=== PATIENT | female | born 1995 | race Caucasian/White ===

== ENCOUNTER 2019-10-06 13:54 | Emergency (ER) | payer OTHER, SELFPAY ==
[2019-10-06 14:26] VITALS: BP 136/76; PULSE 87; RESP 19; TEMP 37.3; O2SAT 100
--- NOTE | 2019-10-06 16:03 | ED.GENADULT ---
HPI - General Adult General Chief complaint: Upper Respiratory Infection Stated complaint: Knot on side neck Time Seen by Provider: 10/06/19 14:50 Source: patient Mode of arrival: ambulatory Limitations: no limitations History of Present Illness HPI narrative: Patient is a 24-year-old female who presents with a few days duration of sore throat with chills sweats with history of prior strep pharyngitis patient notes moderate aching pain to the throat made worse with swallowing has not taken anything for her symptoms presents per private vehicle. . Related Data Allergies Allergy/AdvReac Type Severity Reaction Status Date / Time No Known Allergies Allergy Unknown Verified 10/06/19 14:40 Review of Systems Review of Systems: All systems reviewed & are unremarkable except as noted in HPI and below PMFSH Social History Social History (Updated 10/06/19 @ 16:04 by Irvin Rg PA-C) Smoking status: Current every day smoker Gender identity (if verbalized by the patient): Female Exam Narrative: Exam Narrative: GENERAL: Well-appearing, well-nourished, and in no acute distress. HEAD: Normocephalic, atraumatic. EYES: PERRLA and EOMI. ENT: Nares clear, no rhinorrhea or epistaxis. Mucous membranes moist. Oropharynx with tonsillar hypertrophy exudate and without other lesions. Bilateral TMs pearly andrade nonbulging. Uvula midline no trismus or drooling NECK: Supple. Anterior adenopathy noted CHEST: Clear to auscultation. No respiratory distress. No wheezes rales or rhonchi HEART: Regular rate and rhythm. No murmur heard. EXTREMITIES: Normal range of motion. No edema. SKIN: Warm, dry, no rash. NEURO: No focal deficits. Alert and oriented x3. Cranial nerves II through XII grossly intact PSYCH: Normal mood and affect. Course Course Emergency Course: Patient in the room in no distress was offered fluids steroids IV but has refused and prefers to take oral medications notes that she needs to leave at this time Vital Signs Vital signs: Vital Signs Temperature 99.2 F 10/06/19 14:26 Pulse Rate 87 10/06/19 14:26 Respiratory Rate 19 10/06/19 14:26 Blood Pressure 136/76 10/06/19 14:26 Pulse Oximetry 100 10/06/19 14:26 Temperature 99.2 F 10/06/19 14:26 Pulse Rate 87 10/06/19 14:26 Respiratory Rate 19 10/06/19 14:26 Blood Pressure 136/76 10/06/19 14:26 Pulse Oximetry 100 10/06/19 14:26 Medical Decision Making MDM Narrative Medical decision making narrative: Patient with strep pharyngitis. there are no focal signs of space occupying lesions that are compromising to the ariway. The floor of the mouth is soft with no signs of Ludwigs Angina. Patient is without trismus or drooling and able to swallow secreations. Patient is felt appropriate for discharge home with dental follow up. Vital Signs Vital Signs: Vital Signs Temperature 99.2 F 10/06/19 14:26 Pulse Rate 87 10/06/19 14:26 Respiratory Rate 19 10/06/19 14:26 Blood Pressure 136/76 10/06/19 14:26 Pulse Oximetry 100 10/06/19 14:26 Temperature 99.2 F 10/06/19 14:26 Pulse Rate 87 10/06/19 14:26 Respiratory Rate 19 10/06/19 14:26 Blood Pressure 136/76 10/06/19 14:26 Pulse Oximetry 100 10/06/19 14:26 Lab Data Labs: Strep Screen Positive Group A Strep *(Reference Range: Negative)* Discharge Plan Discharge Clinical Impression: Acute streptococcal pharyngitis Patient Disposition: Home, Self-Care Condition: Stable Instructions: Antibiotic Form, Strep Throat (DC) Additional Instructions: Follow up with your primary care provider within 3-5 days. Go to ER for shortness of breath, difficulty breathing, chest pain, fever/chills, weakness, nauseau/vomitting, unable to swallow or open the mouth etc. or any other concerns. Stay well-hydrated Take any prescribed medications as directed. Follow patient education sheets If you do not have a drug allergy to tylen
== END 2019-10-06 16:23 | disposition home or self-care (01) ==
PROVIDERS: Emergency Provider Emergency Medicine
DX: J02.0 Streptococcal pharyngitis (principal); F17.200 Nicotine dependence, unspecified, uncomplicated
CPT/HCPCS: 87880; 99283

== ENCOUNTER 2021-08-11 17:49 | Emergency (ER) | payer OTHER, SELFPAY ==
[2021-08-11 17:56] VITALS: BP 144/55; PULSE 83; RESP 20; TEMP 36.5; O2SAT 100
[2021-08-11 20:01] VITALS: BP 108/77; PULSE 104; RESP 16; O2SAT 100
--- NOTE | 2021-08-11 20:15 | ED.EAR ---
HPI - Ear Problem General Chief complaint: Ear Stated complaint: my ear is disinigrating Time Seen by Provider: 08/11/21 19:58 Source: patient Mode of arrival: ambulatory Limitations: no limitations History of Present Illness HPI Narrative: Patient is a 26-year-old female complaining of bilateral ear pain left worse than the right, mild invisible discharge on the left, on and off for the past 2 months. Patient denies any ear swelling. Patient denies any fever or chills. Related Data Allergies Allergy/AdvReac Type Severity Reaction Status Date / Time No Known Allergies Allergy Unknown Verified 08/11/21 19:58 Review of Systems Review of Systems: All systems reviewed & are unremarkable except as noted in HPI and below PMFSH Social History Social History Smoking status: Current every day smoker Gender identity (if verbalized by the patient): Female Comments Past medical history: None Family history: None Social history: Positive for smoker, no EtOH use, occasional drug use Exam Const: General: no acute distress and alert Orientation/consciousness: patient oriented x3 HENMT: Head: no contusions General nose exam: no nasal discharge noted and no epistaxis Face and sinus: normal facial exam and no sinus tenderness Mouth: Yes Normal oral and palatal mucosa present and Yes moist mucous membranes Other: Erythematous, mildly swollen left external ear canal, intact tympanic membrane bilaterally Eyes: Conjunctivae: conjunctivae normal Resp: Effort & Inspection: normal respiratory effort Skin: General skin exam: normal color Neuro: General: patient oriented x3 and moves all extremities Course Vital Signs Vital signs: Vital Signs Temperature 36.5 C 08/11/21 17:56 Pulse Rate 83 08/11/21 17:56 Respiratory Rate 20 08/11/21 17:56 Blood Pressure 144/55 H 08/11/21 17:56 Pulse Oximetry 100 08/11/21 17:56 Temperature 36.5 C 08/11/21 17:56 Pulse Rate 104 H 08/11/21 20:01 Respiratory Rate 16 08/11/21 20:01 Blood Pressure 108/77 08/11/21 20:01 Pulse Oximetry 100 08/11/21 20:01 Medical Decision Making Vital Signs Vital Signs: Vital Signs Temperature 36.5 C 08/11/21 17:56 Pulse Rate 83 08/11/21 17:56 Respiratory Rate 20 08/11/21 17:56 Blood Pressure 144/55 H 08/11/21 17:56 Pulse Oximetry 100 08/11/21 17:56 Temperature 36.5 C 08/11/21 17:56 Pulse Rate 104 H 08/11/21 20:01 Respiratory Rate 16 08/11/21 20:01 Blood Pressure 108/77 08/11/21 20:01 Pulse Oximetry 100 08/11/21 20:01 Discharge Plan Discharge Clinical Impression: Otitis externa Qualifiers: Otitis externa type: unspecified type Chronicity: unspecified Laterality: unspecified laterality Qualified Code(s): H60.90 - Unspecified otitis externa, unspecified ear Patient Disposition: Home, Self-Care Condition: Stable Instructions: Ear Infection (GEN) Prescriptions: New ciprofloxacin-dexamethasone [Ciprodex] 0.3-0.1 % drops,suspension 4 drp EACH EAR Q12H 7 Days Qty: 7.5 RF: 0 No Action amoxicillin 500 mg capsule 500 mg PO TID 10 Days Qty: 30 RF: 0 ibuprofen [IBU] 600 mg tablet 600 mg PO Q6H PRN (Reason: fever or pain) Qty: 10 RF: 0 Follow-up/Referrals: PHYSICIAN,DRYWALL APPLICATION SUPERVISOR [Primary Care Provider] - Time of Disposition: 20:19
== END 2021-08-11 20:55 | disposition home or self-care (01) ==
PROVIDERS: Emergency Provider Emergency Medicine
DX: H60.92 Unspecified otitis externa, left ear (principal); F17.200 Nicotine dependence, unspecified, uncomplicated
CPT/HCPCS: 99283

== ENCOUNTER 2022-01-16 14:56 | Emergency (ER) | payer OTHER, SELFPAY ==
[2022-01-16 15:05] VITALS: BP 116/83; PULSE 89; RESP 16; TEMP 36.5; O2SAT 100
--- NOTE | 2022-01-16 15:06 | ED.EAR ---
HPI - Ear Problem General Chief complaint: Ear Stated complaint: Ear Pain Time Seen by Provider: 01/16/22 15:06 Source: patient Mode of arrival: ambulatory Limitations: no limitations History of Present Illness HPI Narrative: 26 yo F presents with c/o clogged sensation, decreased hearing to R ear for 1 wk. 3 days ago R ear became painful. No other symptoms. Denies recent swimming. All systems reviewed and negative except as noted above. Related Data Allergies Allergy/AdvReac Type Severity Reaction Status Date / Time No Known Allergies Allergy Unknown Verified 01/16/22 15:08 Review of Systems Review of Systems: CONSTITUTIONAL: Denies fever, chills, or sweats. EYES: Denies visual changes, redness, or discharge. ENT: Denies rhinorrhea, congestion, sore throat. Reports R ear pain and clogged feeling. CARDIOVASCULAR: Denies chest pain, palpitations, or edema. RESPIRATORY: Denies cough or dyspnea. GASTROINTESTINAL: Denies abdominal pain, nausea, vomiting, or diarrhea. GENITOURINARY: Denies dysuria or hematuria. SKIN: Denies rash or itching. MUSCULOSKELETAL: Denies back pain, joint pain, or myalgia. NEUROLOGIC: Denies headache, numbness, or weakness. PSYCHIATRIC: Denies anxiety or depression. All other systems reviewed are negative, except as documented in HPI. PMFSH Social History Social History Smoking status: Current every day smoker Gender identity (if verbalized by the patient): Female Comments At time of signature, agree with nursing past medical, surgical, social and family history. There is no relevant family history pertinent to the presenting complaint. Exam Narrative: GENERAL: This is a well-nourished, well-developed patient, in no apparent distress. HEAD: normocephalic, atraumatic. EYES: PERRL. Sclera clear/white. Vision is grossly intact. EARS: External ears normal. Green drainage to multiple black spots to R ear canal. L ear canal normal. No TM perforation. NOSE: External nose normal THROAT: Mucous membranes moist, posterior pharynx clear. NECK: Neck supple, non-tender without lymphadenopathy, masses or thyromegaly. CARDIOVASCULAR: Regular rate RESPIRATORY: Regular rate SKIN: warm, Dry, intact with no suspicious lesions or rash, good texture and turgor. NEURO: awake, alert, and oriented to person, place and time. There were no obvious focal neurologic abnormalities. EXTREMITIES: No joint tenderness, effusion, or edema noted. Course Course Level of Care: Express Care Visit Vital Signs Vital signs: Vital Signs Temperature 36.5 C 01/16/22 15:05 Pulse Rate 89 01/16/22 15:05 Respiratory Rate 16 01/16/22 15:05 Blood Pressure 116/83 01/16/22 15:05 Pulse Oximetry 100 01/16/22 15:05 Oxygen Delivery Room Air 01/16/22 15:05 Temperature 36.5 C 01/16/22 15:05 Pulse Rate 89 01/16/22 15:05 Respiratory Rate 16 01/16/22 15:05 Blood Pressure 116/83 01/16/22 15:05 Pulse Oximetry 100 01/16/22 15:05 Oxygen Delivery Room Air 01/16/22 15:05 Reviewed Medical Decision Making MDM Narrative Medical decision making narrative: Patient is aware of diagnosis, understands and agrees to treatment plan. Anticipatory guidance given. Patient agrees to follow-up as directed and is aware of reasons to seek care at the emergency department. Portions of this record may have been created with voice recognition software Vital Signs Vital Signs: Vital Signs Temperature 36.5 C 01/16/22 15:05 Pulse Rate 89 01/16/22 15:05 Respiratory Rate 16 01/16/22 15:05 Blood Pressure 116/83 01/16/22 15:05 Pulse Oximetry 100 01/16/22 15:05 Oxygen Delivery Room Air 01/16/22 15:05 Temperature 36.5 C 01/16/22 15:05 Pulse Rate 89 01/16/22 15:05 Respiratory Rate 16 01/16/22 15:05 Blood Pressure 116/83 01/16/22 15:05 Pulse Oximetry 100 01/16/22 15:05 Oxygen Delivery Room Air 01/16/22 15:05 Dis
== END 2022-01-16 15:19 | disposition home or self-care (01) ==
PROVIDERS: Emergency Provider Nurse Practitioner Family
DX: H60.91 Unspecified otitis externa, right ear (principal); B49 Unspecified mycosis
CPT/HCPCS: 99213; G0463